=== PATIENT | male | born 1960 | race African-American/Black ===

== ENCOUNTER 2018-12-17 22:25 | Emergency (ER) | payer MEDICAID ==
[~2018-12-17] VITALS: Ht 188 cm; Wt 113.4 kg
[2018-12-18 01:12] VITALS: BP 116/82
[2018-12-18] MEDS ORDERED: HYDROcodone-ACET 5/325MG TAB PO ONE (01:15)
[2018-12-18] MEDS ORDERED: DexAMETHasone SOD PHOS 10MG/1ML VIAL INJ IM ONE (01:15)
== END 2018-12-18 01:28 | disposition home or self-care (01) ==
LOC: ER 22:28
DX: M25.462 Effusion, left knee (principal)
CPT/HCPCS: 73562; 96372; 99283; J1100

== ENCOUNTER → 2019-11-19 | Emergency (ER) | payer MEDICAID ==
[~2019-11-19] VITALS: Ht 188 cm; Wt 108.9 kg
[~2019-11-19] MED LIST: EPINEPHrine HCL 1 MG/10 ML SYRG ONE
[2019-11-19 14:36] VITALS: BP 0/0
== END | disposition expired ==
LOC: EDUNIT# 14:23 → ER 14:31 → EDBD 14:31
DX: I46.9 Cardiac arrest, cause unspecified (principal); J96.90 Respiratory failure, unspecified, unspecified whether with hypoxia or hypercapnia
CPT/HCPCS: 92950; 99285; J0171